=== PATIENT | male | born 1935 | race Caucasian/White ===

== ENCOUNTER 2017-04-11 10:30 | Outpatient (RCR) | payer MEDICARE ==
--- NOTE | 2017-03-17 16:44 | PT INITIAL EVALUATION ---
MEDICAL DIAGNOSIS: Balance Problems TREATMENT DIAGNOSIS: Same DATE OF ONSET: 01/15/17 SUBJECTIVE: Chun Paz presents to physical therapy with complaints of increased "wobbliness" over the last few months. He states that he went for a walk around [facility], which took him about 20 minutes. Following the walk, he reports that he was extremely wobbly and felt like it was a great idea to return to PT to improve balance. He reports that he would like to be able to walk on a straight line by the end of PT. He states that he feels like his L LE is weaker than R LE. Otherwise, he reports that he is doing well and does not currently have any other aches and pains. REHAB PROBLEM LIST: Decreased ROM Decreased Strength Decreased Endurance Decreased Balance Decreased Function PREVIOUS MEDICAL HISTORY: See EMR OCCUPATION: Retired OBJECTIVE: Posture: He demonstrated minimal B rounded shoulders and increased thoracic kyphosis. Strength: L hip flexion, extension, abduction, and L ankle DF: 4/5 with no pain. R hip flexion, extension, abduction, and R ankle DF: 4+/5 with no pain. B knee flexion, extension, adduction, and PF: 5/5. Special Tests: Hinojosa Balance Scale: 48/56. Mobility: Independent Gait: He demonstrated normal gait mechanics. Balance: Firm surface, normal base of support, eyes opened/closed: 60 seconds. Firm surface, decreased base of support, eyes opened/closed: 60 seconds. Compliant surface, normal base of support, eyes opened: 50 seconds. Compliant surface, decreased base of support, eyes closed: 23 seconds. Firm surface, tandem stance (R front), eyes opened: 12 seconds. Firm surface, tandem stance ( L front), eyes opened: 29 seconds. Compliant surface, tandem stance (R front), eyes opened: 6 seconds. Compliant surface, tandem stance (L front), eyes opened : 2 seconds. ASSESSMENT: Kwadwo will benefit from skilled physical therapy addressing the listed impairments to improve function and QOL. Short Term Goals 6 weeks: Pt will improve hinojosa balance test from baseline to 52/56 or greater to improve function and QOL. 6 weeks: Pt will improve his balance in every condition by 10 seconds or more in each condition to improve function and QOL Patient's Goals walk in a straight line PLAN: Patient to be seen for Strengthening/condition Range of Motion Spinal Stabilization Work Hardening/Cond Stretching Neuromuscular Re-ed Closed Chain Program Posture/Body mechanics Gait Trg/Balance Trg Home Exercise Program Therapeutic Activities 2x/Week for 6 Weeks If you have any questions, comments, or concerns about this report or plan, please contact me at . Thank you, Jamel Mcallister, PT, DPT MTDD
[~2017-04-11 10:30] MED LIST: ADV250/50; ALB18R IH; ALB6.7R INH; ALBU8.5H IH; AMOX-556 PO; ASP81 PO; ASPI-1471 PO; ATOR10TA24 PO; ATOR10TA65 PO; ATOR40TA24 PO; ATOR40TA69 PO; CAR6.25 PO; CELLC500PT PO; CIPR750T84 PO; CLO75 PO; DAPS25TA8 PO; DOXY-179 PO; ENO30I SC; EPLE25TA18 PO; EPLE50TA11 PO; ETHA25TA3 PO; EZE10 PO; EZET10TA41 PO; FAM20 PO; FEXO30TA PO; FLUT1DIS28 IH; FURO-45 PO; FURO-47 PO; GEMF600T91 PO; HYDR-2966 PO; HYDR12.597 PO; IPRA3AMP21 IH; KETO120S13 TP; LACT-272 PO; LIS20 PO; LISI-374 PO; METF-410 PO; METO5TAB79 PO; METR-160 PO; MYCO500T28 PO; OXYGENHOME INH; PER PO; POTA-23 PO; PRE1 PO; PRE5 PO; PRED-1 PO; PRED20TA6 PO; SPIR25TA78 PO; SPIR50TA31 PO; WAR1 PO; WARF1TAB15 PO
[2017-04-15] MEDS ORDERED: CELLC500PT PO (10:51)
[2017-04-16] MEDS ORDERED: FLUT1DIS28 IH (15:54)
[2017-04-30] MEDS ORDERED: EPLE25TA18 PO (14:20)
[2017-04-30] MEDS ORDERED: ATOR10TA65 PO (14:20)
--- NOTE | 2017-05-27 16:37 | PT PLAN OF CARE ---
Physician: Yosvany Valdez MD Patient is being seen: 2x/week Therapist: Jamel Mcallister PT, DPT Medical Diagnosis: Balance Problems Treatment Diagnosis: Same Date of Onset: 01/15/17 Date of Initial Evaluation: 03/17/17 Date patient was last seen: 04/11/17 Number of treatments: 7 Number of cancellations/No shows: 0 INTERVENTIONS: Strengthening/condition Range of Motion Spinal Stabilization Work Hardening/Cond Stretching Neuromuscular Re-ed Closed Chain Program Posture/Body mechanics Gait Trg/Balance Trg Home Exercise Program Therapeutic Activities GOALS: 6 weeks: Pt will improve hinojosa balance test from baseline to 52/56 or greater to improve function and QOL. 6 weeks: Pt will improve his balance in every condition by 10 seconds or more in each condition to improve function and QOL PATIENT'S GOAL: walk in a straight line Status of Patient's Goals: Unknown Patient Compliance: Good Prognosis: Excellent Reasons for continuing therapy: He reports that he is doing really. He reports that he feels like he is back to normal. However, we were unable to get his exit numbers due to the fact that he did not return prior to his self discharge. As a result, he will be discharged from PT. Posture: He demonstrated minimal B rounded shoulders and increased thoracic kyphosis. ROM: Strength: L hip flexion, extension, abduction, and L ankle DF: 4/5 with no pain. R hip flexion, extension, abduction, and R ankle DF: 4+/5 with no pain. B knee flexion, extension, adduction, and PF: 5/5. Palpation: Special Tests: Hinojosa Balance Scale: 48/56. Mobility: Independent If you have any questions, please contact me at [phone]. Thank you, Jamel Mcallister, PT, DPT [facility]
== END 2017-04-11 18:00 | disposition home or self-care (01) ==
LOC: PT 10:30
PROVIDERS: ATTEND Internal Medicine
DX: R26.89 Other abnormalities of gait and mobility (principal); M62.81 Muscle weakness (generalized)
CPT/HCPCS: 97161

== ENCOUNTER → 2017-05-08 | Outpatient (CLI) | payer MEDICARE ==
[~2017-05-08] MED LIST changes: -WARF1TAB15 PO; +WARF1TAB63 PO
[2017-05-08 11:52] LABS: PLATELET COUNT, AUTOMATED 162 K/uL (150-450)
== END ==
LOC: LAB 10:47
PROVIDERS: ATTEND Dermatology MOHS-Micrographic Surgery
DX: L57.0 Actinic keratosis (principal); Z79.899 Other long term (current) drug therapy
CPT/HCPCS: 36415; 82040; 82247; 82310; 82374; 82435; 82565; 82947; 83516; 84075; 84132; 84155; 84295; 84450; 84460; 84520; 85025

== ENCOUNTER → 2017-11-04 | Outpatient (CLI) | payer MEDICARE ==
[~2017-11-04] MED LIST changes: +IPRA3AMP10 IH; -IPRA3AMP21 IH; -METF-410 PO; +METF-411 PO; -SPIR25TA78 PO; +SPIR25TA80 PO; -SPIR50TA31 PO; +SPIR50TA33 PO; +WARF1TAB15 PO; -WARF1TAB63 PO
[2017-11-04 09:58] LABS: LDL CHOLESTEROL 82 mg/dl
== END ==
LOC: LAB 08:54
PROVIDERS: ATTEND Internal Medicine
DX: I10 Essential (primary) hypertension (principal); E78.00 Pure hypercholesterolemia, unspecified
CPT/HCPCS: 36415; 82040; 82247; 82310; 82374; 82435; 82465; 82565; 82947; 83718; 84075; 84132; 84155; 84295; 84450; 84460; 84478; 84520

== ENCOUNTER 2018-01-16 06:59 | Outpatient (RCR) | payer MEDICARE ==
[~2018-01-16 06:59] MED LIST changes: +ENOX40DI9 SQ; -KETO120S13 TP; +KETO120S14 TP; -METF-411 PO; +METF-450 PO
[2018-01-17 09:54] VITALS: BP 132/57
[2018-01-17] MEDS: ENOXAPARIN 40 MG/0.4ML SYR SC SCH (09:56)
[2018-01-18 09:47] VITALS: BP 131/76
[2018-01-18] MEDS: ENOXAPARIN 40 MG/0.4ML SYR SC SCH (09:51)
== END 2018-02-11 09:34 | disposition home or self-care (01) ==
LOC: SPU 06:59
PROVIDERS: ATTEND Pharmacist Pharmacotherapy
DX: C44.300 Unspecified malignant neoplasm of skin of unspecified part of face (principal); I48.91 Unspecified atrial fibrillation; Z95.2 Presence of prosthetic heart valve; Z79.01 Long term (current) use of anticoagulants
CPT/HCPCS: 96372; J1650

== ENCOUNTER 2018-01-23 05:07 | Emergency (ER) | payer MEDICARE ==
--- NOTE | 2018-01-23 05:14 | ER Report ---
History and Physical Time Seen By MD: 05:10 (RENAE FERRARO DO) HPI/ROS CHIEF COMPLAINT: All, weakness HISTORY OF PRESENT ILLNESS: 82-year-old male brought in from home after a fall. Patient fell out of bed between the nightstand and his bed. He was unable to get out by himself or with the assistance of his . They and calling 911. EMS arrived. Patient's history is significant for recent hospitalization for resection of a skin cancer from his frontal scalp. There is an intact large incision. The incision appears to have been bleeding. There is blood down the right side of his face, covering his eye and right cheek. Patient on arrival is noted to have a fever of 100.0. Patient denies injuries from his fall. He denies neck pain, or LOC. Patient denies chest pain or shortness of breath. Patient was noted to be hypotensive. On EMSs arrival, with a pressure in the 90s. He was also noted to be hypoxic at 84% on room air. REVIEW OF SYSTEMS: Respiratory: No cough, no dyspnea. Cardiovascular: No chest pain, no palpitations. Gastrointestinal: No vomiting, no abdominal pain. Musculoskeletal: No back pain. (RENAE FERRARO DO) Allergies: Coded Allergies: Sulfa (Sulfonamide Antibiotics) (Unverified Allergy, Severe, based on bullous pemphigoid rxn to furosemide, 01/23/18) furosemide (Verified Allergy, Severe, bullous pemphigoid, 01/23/18) nitroglycerin (Unverified Allergy, Unknown, UNKNOWN, 01/23/18) Home Meds Active Scripts Enoxaparin Sodium (ENOXAPARIN SODIUM) 40 Mg/0.4 Ml Disp.syrin, 40 MG SQ QDAY for 6 Days, #6 SYR 0 Refills Prov:PERLA MCKENZIE PHARMD 01/12/18 Eplerenone (EPLERENONE) 25 Mg Tablet, 2 TAB PO QDAY, #180 TAB 3 Refills Prov:KARLOS GRACE MD 10/30/17 Mycophenolate Mofetil (CELLCEPT) 500 Mg Tab, 1 TAB PO BID, #90 TAB Prov:KARLOS GRACE MD 10/30/17 Carvedilol (CARVEDILOL) 6.25 Mg Tab, 1 TAB PO QDAY, #180 TAB 3 Refills Prov:KARLOS GRACE MD 08/26/17 Fluticasone/Salmeterol (ADVAIR 250-50 DISKUS) 1 Each Disk.w.dev, 1 PUFF IH BID, #180 TAB 11 Refills Prov:KARLOS GRACE MD 04/16/17 Ethacrynic Acid (Ethacrynic Acid) 25 Mg Tablet, 1 TAB PO QDAY, #30 TAB Prov:PERLA MCKENZIE PHARMD 10/23/16 Warfarin Sodium (WARFARIN SODIUM) 1 Mg Tablet, 1 TAB PO 4 times a week, #90 TAB 4 Refills 4 DAYS A WEEK Prov:KARLOS GRACE MD 02/06/16 Reported Medications Atorvastatin Calcium (ATORVASTATIN CALCIUM) 10 Mg Tablet, 1 TAB PO QDAY, TAB 04/30/17 Past Medical/Surgical History Past Medical History HEENT: Reports hx of: allergic rhinitis Cardiovascular: Reports hx of: atrial fibrillation cardiac arrhythmias (complete heart block - pacemaker) CHF (systolic, NYHA class 3 ) heart valve disease (severe aortic stenosis - TAVR 01/27 , mild-mod mitral regurg) hyperlipidemia hypertension Respiratory: Reports hx of: COPD Gastrointestinal: Reports hx of: diverticulitis Genitourinary: Reports hx of: benign prostatic hypertro Musculoskeletal: Reports hx of: gout osteoarthritis other musculoskeletal hx (L4-5 disc) Integumentary: Reports hx of: other integumentary hx (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, recurrent) Past Surgical History HEENT: Reports hx of: cataract extraction (bilat) tonsillectomy other eye surgery (macular puckering 09/23) Cardiovascular: Reports hx of: pacemaker (generator replacement 11/27) valve replacement (transcatheter Aortic Valve replacement 01/27) Integumentary: Reports hx of: benign lesion removal (02/23) skin cancer removal (02/23) (RENAE FERRARO DO) Reviewed Nurses Notes: Yes Old Medical Records Reviewed: Yes (RENAE FERRARO DO) Hx Smoking: No Smoking Status: Former Smoker Hx Substance Use Disorder: No Hx Alcohol Use: Yes (2-3 OZ DAILY) (RENAE FERRARO DO) Constitutional Vital Sign - Last 24 Hours 01/23/18 01/23/18 01/23/18 01/23/18 05:10 05:11 05:23 05:30 Temp 100.3 Pulse 60 Resp 17 B/P (MAP) 118/70 (86) 118/70 89/73 (78) 99/49 (66) Pulse Ox 92 O2 Delivery Room Air 01/23/18 01/23/18 01/23/18 01/23/18 05:53 06:07 06:10 06:11 Pulse 60 B/P (MAP) 97/35 (55) 119/43 (68) Pulse Ox 97 O2 Flow Rate 2.0 01/23/18 01/23/18 01/23/18 06:30 06:37 10:07 Temp 102.9 Pulse 60 B/P (MAP) 121/65 (83) Pulse Ox 98 (JAMILA MALDONADO MD) Physical Exam Vital signs stable, temp 100.3, patient was noted to be hypotensive by EMS on arrival in the field. General Appearance: The patient is alert, has no immediate need for airway protection and no current signs of toxicity. There is an intact incision across the top of the scalp T-shaped in nature with intact sutures. There is gross bleeding around this crusted dried extending down to the right eye., Aggressive palpation of the neck reveals no tenderness. HEENT: Pupils equal and round no injection. TMs normal, oropharynx with dry mucous membranes, no erythema Respiratory: Chest is non tender, lungs are clear to auscultation. Cardiac: Irregular, irregular Gastrointestinal: Abdomen is soft and non tender, no masses, bowel sounds normal. Musculoskeletal: Neck: Neck is supple and non tender. No tenderness on palpation of the midline Extremities have full range of motion and are non tender., No edema, no tenderness Skin: No rashes or lesions. Intact for scalp/forehead incision DIFFERENTIAL DIAGNOSIS: After history and physical exam differential diagnosis was considered for adult fever including but not limited to viral syndromes including influenza, urinary tract infection, pneumonia and sepsis. (RENAE FERRARO DO) Medical Decision Making Data Points Result Diagram: 01/23/1825 01/23/1825 Laboratory Hematology Test 01/23/18 05:25 01/23/18 08:17 01/23/18 08:32 01/23/18 10:20 Red Blood Count 4.40 M/uL (4.00-5.60) Mean Corpuscular Volume 100.4 fL (80.0-96.0) Mean Corpuscular Hemoglobin 33.7 pg (26.0-33.0) Mean Corpuscular Hemoglobin Concent 33.5 g/dL (32.0-36.0) Red Cell Distribution Width 13.5 % (11.5-14.5) Mean Platelet Volume 9.1 fL (7.2-11.1) Neutrophils (%) (Auto) 93.0 % (39.4-72.5) Lymphocytes (%) (Auto) 1.9 % (17.6-49.6) Monocytes (%) (Auto) 4.9 % (4.1-12.4) Eosinophils (%) (Auto) 0.0 % (0.4-6.7) Basophils (%) (Auto) 0.2 % (0.3-1.4) Nucleated RBC Relative Count (auto) 0.1 /100WBC Neutrophils # (Auto) 12.8 K/uL (2.0-7.4) Lymphocytes # (Auto) 0.3 K/uL (1.3-3.6) Monocytes # (Auto) 0.7 K/uL (0.3-1.0) Eosinophils # (Auto) 0.0 K/uL (0.0-0.5) Basophils # (Auto) 0.0 K/uL (0.0-0.1) Nucleated RBC Absolute Count (auto) 0.01 K/uL Prothrombin Time 19.4 seconds (12.0-14.4) Prothromb Time International Ratio 1.61 Activated Partial Thromboplast Time 37 seconds (23-35) Sodium Level 138 mmol/L (137-145) Potassium Level 3.7 mmol/L (3.5-5.0) Chloride Level 101 mmol/L (98-107) Carbon Dioxide Level 24 mmol/L (22-30) Blood Urea Nitrogen 30 mg/dl (9-21) Creatinine 1.50 mg/dl (0.66-1.25) Glomerular Filtration Rate Calc 44.6 Random Glucose 153 mg/dl (75-110) Calcium Level 9.4 mg/dl (8.4-10.2) Total Bilirubin 1.4 mg/dl (0.2-1.3) Aspartate Amino Transf (AST/SGOT) 23 U/L (0-35) Alanine Aminotransferase (ALT/SGPT) 19 U/L (0-56) Alkaline Phosphatase 48 U/L (0-126) Total Protein 6.1 g/dl (6.3-8.2) Albumin 3.6 g/dl (3.5-5.0) Lactate 2.0 mmol/L (0.7-2.1) Urine Color Aleyda Urine Clarity Cloudy Urine pH 5.0 pH (4.8-9.5) Urine Specific [place] 1.020 Urine Protein 100 mg/dL (NEGATIVE) Urine Glucose (UA) Negative mg/dL (NEGATIVE) Urine Ketones Negative mg/dL (NEGATIVE) Urine Blood Large (NEGATIVE) Urine Nitrite Negative (NEGATIVE) Urine Bilirubin Negative (NEGATIVE) Urine Urobilinogen Negative mg/dL (0.2-1.9) Urine Leukocyte Esterase Negative (NEGATIVE) Urine RBC 2 /HPF (0-2/HPF) Urine WBC 6 /HPF (0-5/HPF) Urine Squamous Epithelial Cells Few /LPF (NONE-FEW) Urine Amorphous Crystals Few /HPF Urine Bacteria Few /HPF (NONE-FEW) Urine Mucus Few /HPF (NONE-FEW) Troponin I 1.010 ng/ml Test 01/23/18 11:00 Blood Gas Puncture Site Left radial Blood Gas Patient Temperature 37 DEGREES Arterial Blood pH 7.38 (7.35-7.45) Arterial Blood Partial Pressure CO2 27 mmHg (32-37) Arterial Blood Partial Pressure O2 70 mmHg (60-80) Arterial Blood HCO3 16 mmol/L (20-26) Arterial Blood Oxygen Saturation 94 % (92-100) Arterial Blood Base Excess -9.0 mmol/L Tavares Test Nt avail Oxygen Liters/Minute 30 Chemistry Test 01/23/18 05:25 01/23/18 08:17 01/23/18 08:32 01/23/18 10:20 White Blood Count 13.8 k/uL (4.5-11.0) Red Blood Count 4.40 M/uL (4.00-5.60) Hemoglobin 14.8 g/dL (14.0-18.0) Hematocrit 44.1 % (42.0-52.0) Mean Corpuscular Volume 100.4 fL (80.0-96.0) Mean Corpuscular Hemoglobin 33.7 pg (26.0-33.0) Mean Corpuscular Hemoglobin Concent 33.5 g/dL (32.0-36.0) Red Cell Distribution Width 13.5 % (11.5-14.5) Platelet Count 113 K/uL (150-450) Mean Platelet Volume 9.1 fL (7.2-11.1) Neutrophils (%) (Auto) 93.0 % (39.4-72.5) Lymphocytes (%) (Auto) 1.9 % (17.6-49.6) Monocytes (%) (Auto) 4.9 % (4.1-12.4) Eosinophils (%) (Auto) 0.0 % (0.4-6.7) Basophils (%) (Auto) 0.2 % (0.3-1.4) Nucleated RBC Relative Count (auto) 0.1 /100WBC Neutrophils # (Auto) 12.8 K/uL (2.0-7.4) Lymphocytes # (Auto) 0.3 K/uL (1.3-3.6) Monocytes # (Auto) 0.7 K/uL (0.3-1.0) Eosinophils # (Auto) 0.0 K/uL (0.0-0.5) Basophils # (Auto) 0.0 K/uL (0.0-0.1) Nucleated RBC Absolute Count (auto) 0.01 K/uL Prothrombin Time 19.4 seconds (12.0-14.4) Prothromb Time International Ratio 1.61 Activated Partial Thromboplast Time 37 seconds (23-35) Glomerular Filtration Rate Calc 44.6 Calcium Level 9.4 mg/dl (8.4-10.2) Total Bilirubin 1.4 mg/dl (0.2-1.3) Aspartate Amino Transf (AST/SGOT) 23 U/L (0-35) Alanine Aminotransferase (ALT/SGPT) 19 U/L (0-56) Alkaline Phosphatase 48 U/L (0-126) Total Protein 6.1 g/dl (6.3-8.2) Albumin 3.6 g/dl (3.5-5.0) Lactate 2.0 mmol/L (0.7-2.1) Urine Color Aleyda Urine Clarity Cloudy Urine pH 5.0 pH (4.8-9.5) Urine Specific [place] 1.020 Urine Protein 100 mg/dL (NEGATIVE) Urine Glucose (UA) Negative mg/dL (NEGATIVE) Urine Ketones Negative mg/dL (NEGATIVE) Urine Blood Large (NEGATIVE) Urine Nitrite Negative (NEGATIVE) Urine Bilirubin Negative (NEGATIVE) Urine Urobilinogen Negative mg/dL (0.2-1.9) Urine Leukocyte Esterase Negative (NEGATIVE) Urine RBC 2 /HPF (0-2/HPF) Urine WBC 6 /HPF (0-5/HPF) Urine Squamous Epithelial Cells Few /LPF (NONE-FEW) Urine Amorphous Crystals Few /HPF Urine Bacteria Few /HPF (NONE-FEW) Urine Mucus Few /HPF (NONE-FEW) Troponin I 1.010 ng/ml Test 01/23/18 11:00 Blood Gas Puncture Site Left radial Blood Gas Patient Temperature 37 DEGREES Arterial Blood pH 7.38 (7.35-7.45) Arterial Blood Partial Pressure CO2 27 mmHg (32-37) Arterial Blood Partial Pressure O2 70 mmHg (60-80) Arterial Blood HCO3 16 mmol/L (20-26) Arterial Blood Oxygen Saturation 94 % (92-100) Arterial Blood Base Excess -9.0 mmol/L Tavares Test Nt avail Oxygen Liters/Minute 30 Coagulation Test 01/23/18 05:25 Prothrombin Time 19.4 seconds Prothromb Time International Ratio 1.61 Activated Partial Thromboplast Time 37 seconds Urinalysis Test 01/23/18 08:32 Urine Color Aleyda Urine Clarity Cloudy Urine pH 5.0 pH (4.8-9.5) Urine Specific [place] 1.020 Urine Protein 100 mg/dL (NEGATIVE) Urine Glucose (UA) Negative mg/dL (NEGATIVE) Urine Ketones Negative mg/dL (NEGATIVE) Urine Blood Large (NEGATIVE) Urine Nitrite Negative (NEGATIVE) Urine Bilirubin Negative (NEGATIVE) Urine Urobilinogen Negative mg/dL (0.2-1.9) Urine Leukocyte Esterase Negative (NEGATIVE) Urine RBC 2 /HPF (0-2/HPF) Urine WBC 6 /HPF (0-5/HPF) Urine Squamous Epithelial Cells Few /LPF (NONE-FEW) Urine Amorphous Crystals Few /HPF Urine Bacteria Few /HPF (NONE-FEW) Urine Mucus Few /HPF (NONE-FEW) (JAMILA MALDONADO MD) Microbiology Microbiology Date/Time Source Procedure Growth Status 01/23/18 06:03 Blood Peripheral Draw Blood Culture - Preliminary NO GROWTH SO FAR, SET LATE. REINCUBATED Resulted 01/23/18 05:25 Blood Peripheral Draw Blood Culture - Preliminary NO GROWTH SO FAR, SET LATE. REINCUBATED Resulted (JAMILA MALDONADO MD) EKG/Imaging EKG Interpretation 12 lead EKG: Rhythm: Pacemaker rhythm with wide complex Minto: normal QRS: normal ST segments: normal Imaging X-ray: Single view portable chest x-ray was obtained. I viewed the images myself on the PACS system. My interpretation of the images is: Clear lung petty, intact pacemaker, no effusions, comparison to previous chest x-ray dated 08/05/16, no significant change. The radiologist interpretation had no clinically significant variation from this interpretation. (RENAE FERRARO DO) ED Course/Re-evaluation Clinical Indication for ER IV: Hydration, IV Access ED Course Patient was admitted to an examination room. H&P was done. The differential diagnoses was considered. On arrival, patient is a low-grade fever 100.3. He was hypotensive. On EMSs arrival, as well as hypoxic. He is likely septic. Search for source was initiated. Chest x-ray was clear. His EKG showed a pacemaker rhythm. He was treated with fluid resuscitation for sepsis. There was turned over at shift change to Dr. Maldonado with a call placed to [facility] since. Patient's troponin is elevated, he will need to be transferred to facility with cardiology consultation. 01/23/2018 6:25:56 am lab called with critical troponin elevated to 1.14 Decision to Disposition Date: Jan 23, 2018 Decision to Disposition Time: 06:27 Critical Care Time I spent a total of 90 minutes of critical care time in obtaining history, performing a physical exam, bedside monitoring of interventions, collecting and interpreting tests and discussion with consultants but not including time spent performing procedures. (RENAE FERRARO DO) ED Course Took this patient as a turnover from Dr. Ferraro. He is septic without a clear source. He is still undergoing fluid resuscitation, but lactate improving and BP more stable. He has received broad spectrum abx. An influenza is pending. I am increasingly concerned about his cardiac status during fluid resuscitation. He will be transferred to [facility] to the cardiac ICU. Re-evaluation Patient became more fatigued and tachypnea After fluid resuscitation. BiPAP and diuresis attempted, but patient fatigued quickly. Decision to intubate based on increased work of breathing. Patient was intubated by me and transferred to [facility] Procedure Procedure: Rapid sequence intubation. Indication for the procedure was respiratory failure. The patient was preoxygenated with 100% oxygen by face mask. The patient was given the following IV medications: Etomidate and succinylcholine. The patient was orally endotracheally intubated under direct visualization with a 7.5 ETT. Tracheal intubation was confirmed with misting on the tube; breath sounds were auscultated equally bilaterally; appropriate color change with [place] CO2 detector. Chest X-ray shows ETT needs to be advanced 1cm which has been completed. The procedure was performed by myself. Decision to Disposition Date: Jan 23, 2018 Decision to Disposition Time: 10:21 (JAMILA MALDONADO MD) Depart Departure Latest Vital Signs Vital Signs Date Time Temp Pulse Resp B/P (MAP) Pulse Ox O2 Delivery O2 Flow Rate FiO2 01/23/18 10:07 102.9 01/23/18 06:37 60 98 01/23/18 06:30 121/65 (83) 01/23/18 06:10 2.0 01/23/18 05:11 17 Room Air (JAMILA MALDONADO MD) Impression: Primary Impression: Fever Additional Impressions: Sepsis Falling Elevated troponin Condition: Improved Disposition: XFER TO ACUTE CARE HOSPITAL Referrals: KARLOS GRACE MD (PCP) Problem Qualifiers Primary Impression: Fever Fever type: unspecified Qualified Codes: R50.9 - Fever, unspecified Additional Impressions: Sepsis Sepsis type: sepsis due to unspecified organism Qualified Codes: A41.9 - Sepsis, unspecified organism RENAE FERRARO DO Jan 23, 2018 05:14 JAMILA MALDONADO MD Jan 23, 2018 10:21
[2018-01-23] MEDS ORDERED: NS(*) 0.9% 1000 ML BAG 1,000 ML IV ONE ×2 (05:15→07:45)
[2018-01-23 05:46] LABS: INR 1.61
[2018-01-23 05:56] LABS: PLATELET COUNT, AUTOMATED 113 K/uL (150-450)
--- NOTE | 2018-01-23 06:07 | RADIOLOGY IMAGING REPORT ---
FACILITY: [facility] - [place] PATIENT NAME: Chun Paz : 1935 MR: [id number] V: [id number] EXAM DATE: ORDERING PHYSICIAN: RENAE RUIZ TECHNOLOGIST: Location: [facility] [place] Patient: Chun Paz : 1935 Visit/Account:[id number] Date of Sevice: 01/23/2018 AP CHEST 01/23/2018 5:32 AM. INDICATION: Altered mental status, fever, fall. COMPARISON: 08/05/2016. FINDINGS: Unchanged single-lead pacer. Lung expansion is low normal. No suspicious consolidation. No pleural effusion or pneumothorax. Cardiac silhouette is mildly enlarged. Aortic valve prosthesis. No disp laced fracture. IMPRESSION: Mild cardiomegaly with no apparent acute abnormality. Report Dictated By: Grupo Khan MD at 01/23/2018 6:01 AM Report E-Signed By: Grupo Khan MD at 01/23/2018 6:03 AM WSN:[id number]
--- NOTE | 2018-01-23 06:14 | RADIOLOGY IMAGING REPORT ---
FACILITY: [facility] - [place] PATIENT NAME: Chun Paz : 1935 MR: [id number] V: [id number] EXAM DATE: ORDERING PHYSICIAN: RENAE RUIZ TECHNOLOGIST: Location: [facility] - [place] Patient: Chun Paz : 1935 Visit/Account:[id number] Date of Sevice: 01/23/2018 HEAD W/O CONTRAST HISTORY: Altered mental status. Fever. Fall. COMPARISON: None. TECHNIQUE: Axial images were obtained from the skull base to the vertex without contrast. Sagittal an d coronal reformats were performed. One of the following dose optimization techniques was utilized in the performance of this exam: Autom ated exposure control; adjustment of the mA and/or kV according to the patient's size; or use of an i terative reconstruction technique. Specific details can be referenced in the facility's radiology CT exam operational policy. CONTRAST: None. FINDINGS: Brain: No intracranial hemorrhage, mass, or edema. There is periventricular and subcortical white mat ter low attenuation that is nonspecific, but most likely reflects chronic microvascular ischemic moore ge, mild in severity. There is mild to moderate calcification of the internal carotid arteries. Ventricles and sulci: Sulci are prominent, compatible with mild to moderate atrophy, normal for age. There is compensatory dilation of the ventricles. Osseous structures: Intact. Paranasal sinuses and mastoids: There is mild mucosal thickening of the right greater than left maxil bal sinuses. There is minimal mucosal thickening of the ethmoid sinuses. There is focal mucosal thic kening versus a mucous retention pseudocyst in the right sphenoid sinus, and there is mild mucosal th ickening of the right sphenoid sinus. The right frontal sinus is not pneumatized, a developmental peyton iant. There is rightward nasal septal deviation, and there is rightward nasal septal spur. There is o pacification of the inferomedial right mastoid air cells, likely a benign effusion. Left mastoid is c lear. Orbits and soft tissues: There is a large hematoma and associated laceration of forehead. There is a contusion of the right lateral face, just anterior to the ear (image 18 series 2). There are senescen t calcifications of the globes. There are vascular calcifications within the scalp. IMPRESSION: 1. Forehead laceration and hematoma, but no acute intracranial abnormality. 2. Contusion of the right lateral face, just anterior to the ear. 3. Sinus disease. Report Dictated By: Yesika Gomez at 01/23/2018 6:03 AM Report E-Signed By: Yesika Gomez at 01/23/2018 6:10 AM WSN:[id number]
[2018-01-23] MEDS ORDERED: ASPIRIN 81 MG CHEW PO ONE (06:30)
--- NOTE | 2018-01-23 07:41 | EKG ---
FACILITY: [facility] PATIENT NAME: GIULIANO NAYAK : [id number] MR: [id number] V: [id number] EXAM DATE: ORDERING PHYSICIAN: RENAE RUIZ TECHNOLOGIST: Test Reason : Blood Pressure : / mmHG Vent. Rate : 063 BPM Atrial Rate : 043 BPM P-R Int : 000 ms QRS Dur : 172 ms QT Int : 448 ms P-R-T Axes : 000 -70 030 degrees QTc Int : 458 ms Electronic ventricular pacemaker No previous ECGs available Confirmed by MARÍA ELENA CROFT ([id number]) on 01/23/2018 3:10:30 PM Referred By: Confirmed By:MARÍA ELENA CROFT
[2018-01-23] MEDS ORDERED: DIPHTH/TETANUS/ACEL. PERTUSSIS IM ONLY ONE (07:45)
[2018-01-23] MEDS ORDERED: PIPERACILLIN/TAZO*3.375GM VIAL 3.375 GM in NS(*) 0.9% 100 ML ADDVANT BAG 100 ML IVPB ONE (07:45)
[2018-01-23] MEDS ORDERED: VANCOMYCIN 1 GM ADDVIAL 1 GM in NS(*) 0.9% 250 ML ADDVAN BAG 250 ML IVPB ONE (07:45)
[2018-01-23] MEDS ORDERED: NS(*) 0.9% 100 ML BAG 100 ML ONE (08:40)
[2018-01-23] MEDS ORDERED: VANCOMYCIN(*) 1 GM VIAL 1 GM, VANCOMYCIN HCL 0.750 GM VIAL 0.75 GM in NS(*) 0.9% 250 ML... IVPB ONE (09:00)
[2018-01-23] MEDS ORDERED: ACETAMINOPHEN 500 MG TAB PO ONE (10:10)
[2018-01-23] MEDS ORDERED: FUROSEMIDE 40 MG/4 ML VIAL IVP ONE (10:25)
[2018-01-23 11:30] VITALS: BP 99/61
--- NOTE | 2018-01-23 11:46 | RADIOLOGY IMAGING REPORT ---
FACILITY: [facility] PATIENT NAME: Chun Paz : 1935 MR: [id number] V: [id number] EXAM DATE: ORDERING PHYSICIAN: JAMILA MALDONADO TECHNOLOGIST: Location: [facility] Patient: Chun Paz : 1935 Visit/Account:[id number] Date of Sevice: 01/23/2018 CHEST SINGLE AP Indication: Post intubation. Comparison: Radiograph from same date at 5:32 AM Findings: Interval intubation with endotracheal tube tip approximately 5.2 cm from the lucia. Left chest wall pacer device is unchanged. Heart size is mildly enlarged. 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 No pneumothorax or pleural effusion. Elevation of the right humerus suggestive of chronic rotator cuff injury. IMPRESSION: 1. No acute cardiopulmonary process. 2. Interval intubation with endotracheal tube in satisfactory position. Report Dictated By: Sanjay Chavez MD at 01/23/2018 11:39 AM Report E-Signed By: Sanjay Chavez MD at 01/23/2018 11:41 AM WSN:[email or web address]
[2018-01-23] MEDS ORDERED: SUCCINYLCHOL CHL 200MG/10ML VL IVP ONE (18:35)
[2018-01-23] MEDS ORDERED: PROPOFOL(*)1000 MG/100 ML VIAL 100 ML IV PRN (18:35)
[2018-01-23] MEDS ORDERED: ETOMIDATE 20 MG/10 ML VIAL IVP ONE (18:35)
== END 2018-01-23 12:00 | disposition short-term general hospital (02) ==
LOC: ER 05:17
DX: R50.9 Fever, unspecified (principal); A41.9 Sepsis, unspecified organism; R79.89 Other specified abnormal findings of blood chemistry; J96.90 Respiratory failure, unspecified, unspecified whether with hypoxia or hypercapnia; W06.XXXA Fall from bed, initial encounter
CPT/HCPCS: 31500; 36415; 70450; 71045; 81001; 82803; 83605; 84484; 85025; 85610; 85730; 87040; 87077; 87088; 87186; 90471; 90715; 93005; 94002; 94660; 96361; 96365; 96366; 96367; 96375; 99291; 99292; A9270; J0330; J1940; J2543; J2704; J3370; J3490; J7030; J7050; 82040; 82247; 82310; 82374; 82435; 82565; 82947; 84075; 84132; 84155; 84295; 84450; 84460; 84520

== ENCOUNTER → 2018-01-23 | Outpatient (REF) | LOC: AMB 10:26 | PROVIDERS: ATTEND Nurse Practitioner | DX: A41.9 Sepsis, unspecified organism (principal) ==

== ENCOUNTER → 2018-01-23 | Outpatient (CLI) | payer MEDICARE | LOC: AMB 04:44 | PROVIDERS: ATTEND Nurse Practitioner | DX: R53.1 Weakness (principal); R09.02 Hypoxemia | CPT/HCPCS: A0425; A0429 ==